=== PATIENT | female | born 1995 | race African-American/Black ===

== ENCOUNTER 2022-06-26 11:00 | Emergency (ER) | payer SELFPAY ==
[~2022-06-26] VITALS: Ht 177.8 cm; Wt 104.3 kg
--- NOTE | 2022-06-26 11:17 | NUR ---
COVID and flu swabs collected and sent to LAB.
[2022-06-26 11:28] VITALS: BP 118/81
--- NOTE | 2022-06-26 11:34 | NUR ---
Patient discharged home in stable condition. No respiratory distress noted.
== END 2022-06-26 11:51 | disposition home or self-care (01) ==
LOC: ER 11:00
DX: J06.9 Acute upper respiratory infection, unspecified (principal)
CPT/HCPCS: 99283; 87400; U0003; A4663